=== PATIENT | female | born 1965 | race Caucasian/White ===

== ENCOUNTER → 2016-08-06 | Outpatient (CLI) | payer BC ==
[~2016-08-06] MED LIST: ASPIRIN325 MG PO; DESYREL100 MG PO; LEVSIN/SL0.125 MG SL; LINZESS290 MCG PO; MULTI FOR HER1 EAC1 PO; PRILOSEC20 MG PO; PROBIOTIC1 EACH PO; PROVENTIL HFA6.7 GM PO; PROZAC20 MG PO; TYLENOL EXTRA500 MG PO; VITAMIN D-32000 UNI1 PO
== END | disposition disaster alternative care site (69) ==
LOC: GRAD 12:55
DX: R10.2 Pelvic and perineal pain (principal); N85.8 Other specified noninflammatory disorders of uterus

== ENCOUNTER → 2016-09-03 | Day surgery (SDC) | payer BC ==
[~2016-09-03] VITALS: Ht 160 cm; Wt 64.3 kg
--- NOTE | ~2016-09-03 | OR ---
PATIENT'S NAME: DANTE MARTIN [facility] AGE: 51 Y [address] ROOM: [place] [id number] LOCATION: [facility] ADMIT DATE: 09/03/2016 OR/Procedure Report DISCHARGE DATE: FAMILY PHYSICIAN: Janelle Salomon MD ATTENDING PHYSICIAN: GAEL LACEY SURGEON: Darion Bucio MD CLIENT RELATIONSHIP CONSULTANT: DATE OF PROCEDURE: 09/03/2016 PROCEDURE PERFORMED: Esophagogastroduodenoscopy with biopsies and dilation. INDICATIONS: Dysphagia. MEDICATIONS: Please see anesthesiology record for details. CONSENT: The risks/benefits/alternatives were discussed, and the patient or her power of patent attorney expressed understanding and agreed to proceed. Informed consent was obtained and placed in the chart. Time-out was completed prior to starting the procedure. DESCRIPTION OF PROCEDURE: The patient was placed in the left lateral decubitus position. One-lead EKG monitoring was used along with intermittent blood pressure monitoring and pulse oximetry. Bite block was placed in the patient's mouth. The above medications were given and titrated to response. Once adequate sedation was completed, the endoscope was passed through the patient's mouth into the posterior oropharynx. The endoscope was then passed into the esophagus, stomach, and duodenal bulb. The duodenum was examined through the third portion. The endoscope was then withdrawn into the stomach. In the stomach, retroflexion was completed. The scope was then straightened and withdrawn from the patient. The patient tolerated the procedure well. There were no complications. Balloon dilation was performed up to 11 mm using standard technique. SUMMARY OF FINDINGS: 1. 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 Biopsies were taken from the midesophagus to evaluate for eosinophilic esophagitis. This ringed narrowing in the middle of the esophagus was dilated with a balloon at both 10 and 11 mm. Post dilation, it was much easier to pass the endoscope from the proximal to distal esophagus. 2. Mild gastritis. 3. Normal duodenum. ASSESSMENT AND PLAN: Dysphagia: It appears that the patient likely has PATIENT'S NAME: DANTE MARTIN [facility] AGE: 51 Y [address] ROOM: [place] [address] LOCATION: [facility] ADMIT DATE: 09/03/2016 OR/Procedure Report DISCHARGE DATE: FAMILY PHYSICIAN: Janelle Salomon MD ATTENDING PHYSICIAN: GAEL LACEY eosinophilic esophagitis. Recommend daily PPI therapy for now. We will await biopsies to determine need for further workup and treatment. If she does have eosinophilic esophagitis, she will likely benefit from consultation with an funeral workers and may need fluticasone therapy. I also would suggest repeat EGD in one month to re-evaluate the narrowing in the esophagus for possible further dilation. J MD CHELSEA ESCOBAR/gamaliel /[id number] d: 09/03/16 1212 t: 09/04/16 1359, OPERATIVE SUMMARY
== END | disposition disaster alternative care site (69) ==
LOC: GPOC 08-27 10:00 → GEND 08:04 → GPOC 10:00
PROC: 0DB28ZX Excision of Middle Esophagus, Via Natural or Artificial Opening Endoscopic, Diagnostic (ICD-10-PCS; principal; 2016-09-03)
PROC: 0D728ZZ Dilation of Middle Esophagus, Via Natural or Artificial Opening Endoscopic (ICD-10-PCS; 2016-09-03)
DX: R13.10 Dysphagia, unspecified (principal); K29.70 Gastritis, unspecified, without bleeding; K22.70 Barrett's esophagus without dysplasia; K21.9 Gastro-esophageal reflux disease without esophagitis; J43.9 Emphysema, unspecified; F17.210 Nicotine dependence, cigarettes, uncomplicated; F32.9 Major depressive disorder, single episode, unspecified; Z88.8 Allergy status to other drugs, medicaments and biological substances; Z90.49 Acquired absence of other specified parts of digestive tract; Z98.890 Other specified postprocedural states; Z98.51 Tubal ligation status
CPT/HCPCS: C1726; J7030

== ENCOUNTER → 2016-09-09 | Outpatient (CLI) | payer BC ==
--- NOTE | ~2016-09-09 | PUL ---
PATIENT'S NAME: DANTE MARTIN [facility] AGE: 51 Y [address] ROOM: [place] [id number] LOCATION: [facility] ADMIT DATE: 09/09/2016 Pulmonary DISCHARGE DATE: FAMILY PHYSICIAN: Janelle Salomon MD ATTENDING PHYSICIAN: Janelle Salomon NAME OF PROCEDURE: Sleep study PROCEDURE DATE: 09/09/16 TECH: Dang Brooks, [employer] TEST #: [facility] [place]# [id number] TECHNICAL PARAMETERS: The patient was studied using International 10/20 measuring system. While the patient was studied, there was continuous monitoring of EEG (8 leads), EOG (2 leads), EKG (3 leads), submental EMG (3 leads), tibial (4 leads), respiratory inductive plethysmography (RIP) for thoracic and abdominal effort, oral and nasal airflow with a thermocouple and pressure transducer, and oximetry. The photogrammetric technician also performed visual and auditory observations noting things like body position, patient's status, breath sounds, artifact, snoring level and patient comments. Continuous sound was monitored using a 2-way speaker system and video monitoring was performed using an infrared camera. Review of the entire study was performed epoch by epoch utilizing a single epoch and multiple epoch capability sleep system. MEDICAL HISTORY: The patient is a 51-year-old woman with daytime sleepiness and snoring. SLEEP STAGE SUMMARY: The patient was studied for 461 minutes of which she slept 449 minutes. She fell asleep in 3 minutes and slept for 97% of the night. RESPIRATORY SUMMARY: Oxygen saturations ranged from 87-94%. There were 35 apneas and 24 hypopneas for an apnea/hypopnea index mildly elevated at 8 events per hour. EKG SUMMARY: No dysrhythmias were noted. LIMB MOVEMENT SUMMARY: No clinically relevant periodic limb movements were noted. SUMMARY: Mild obstructive sleep apnea. PLAN: Patient will receive results from the ordering provider. PATIENT'S NAME: DANTE MARTIN [facility] AGE: 51 Y [address] ROOM: [place] [id number] LOCATION: [facility] ADMIT DATE: 09/09/2016 Pulmonary DISCHARGE DATE: FAMILY PHYSICIAN: Janelle Salomon MD ATTENDING PHYSICIAN: Janelle Salomon MD TETO REYES/daniel /[id number] dtt: 09/19/16 0721 , Zain Alonso dtd: 09/15/16 1117
== END | disposition disaster alternative care site (69) ==
LOC: GSLP 20:33
DX: G47.10 Hypersomnia, unspecified (principal); G47.33 Obstructive sleep apnea (adult) (pediatric); R40.0 Somnolence